=== PATIENT | male | born 1985 | race Native Hawaiian/Other Pacific Islander ===

== ENCOUNTER 2017-06-23 10:02 | Day surgery (SDC) | payer OTHER ==
[~2017-06-23] VITALS: Ht 177.8 cm; Wt 158.6 kg
[~2017-06-23 10:02] MED LIST: FentaNYL CITRATE-PF 100 MCG/2 ML VIAL IVP PRN; HYDROmorphone 2 MG/ML SYRINGE IVP PRN; MEPERIDINE-PF 25 MG/ML SYRINGE IVP PRN; OXYGEN THERAPY IH SCH; RINGERS SOLUTION,LACTATED 1,000 ML IV ONE
[2017-06-23] MEDS ORDERED: LIDOCAINE HCL/PF 2% 5 ML VIAL IM ONE (10:03)
[2017-06-23] MEDS ORDERED: PROPOFOL 1% 20 ML VIAL IVP ONE (10:03)
[2017-06-23] MEDS ORDERED: FentaNYL CITRATE-PF 100 MCG/2 ML VIAL IVP ONE (10:03)
[2017-06-23] MEDS ORDERED: MIDAZOLAM HCL 2 MG/2 ML VIAL IVP ONE (10:03)
[2017-06-23] MEDS ORDERED: 0.9% SODIUM CHLORIDE 10 ML VIAL IVP ONE (10:03)
[2017-06-23] MEDS ORDERED: RINGERS SOLUTION,LACTATED 1,000 ML IV ONE (10:14)
[2017-06-23 10:59] LABS: ANION GAP 8 mmol/L (8-16); CALCIUM, TOTAL 9.2 mg/dL (8.8-10.5); CARBON DIOXIDE 29 mmol/L (22-29); CHLORIDE 101 mmol/L (98-107); CREATININE 0.93 mg/dL (0.60-1.30); GLOMERULAR FILTR. RATE CALC > 60 mL/min (>60); POTASSIUM 3.6 mmol/L (3.5-5.1); SODIUM SERUM 138 mmol/L (136-145); UREA NITROGEN, BLOOD 14 mg/dL (7-18)
[2017-06-23] MEDS ORDERED: BUPIVACAINE HCL/PF 0.5% 30 ML VIAL ONE (11:17)
[2017-06-23] MEDS ORDERED: LIDOCAINE HCL/PF 1% 30 ML VIAL ONE (11:17)
== END 2017-06-23 15:10 | disposition home or self-care (01) ==
LOC: SURGERY 10:02
PROVIDERS: ATTEND Urology
DX: N47.1 Phimosis (principal); N48.1 Balanitis; F12.90 Cannabis use, unspecified, uncomplicated; G47.33 Obstructive sleep apnea (adult) (pediatric); Z72.89 Other problems related to lifestyle; Z98.890 Other specified postprocedural states
CPT/HCPCS: 36415; 54161; 80048; 88304; J0690; J2250; J2704; J3010; J3490 ×3; J7120